=== PATIENT | male | born 1945 | race Caucasian/White ===

== ENCOUNTER 2019-08-08 07:31 | Outpatient (CLI) | payer MEDICARE, BC, SELFPAY ==
--- NOTE | ~2019-08-08 | XR_ITS ---
EXAMINATION: XR chest 2V DATE: 08/08/2019 08:09 INDICATION: Congestion, pulmonary tuberculosis TECHNIQUE: PA and lateral views of the chest are obtained. COMPARISON: None available FINDINGS: The lungs are free of acute opacities. There is no pleural effusion or pneumothorax. The he art size is upper limits of normal for technique. Median sternotomy wires and mediastinal surgical cl ips are seen, likely from prior coronary artery bypass grafting. There is moderate thoracic spondylos is. There are partially imaged changes of anterior fusion in the cervical spine. IMPRESSION: 1. No acute cardiopulmonary abnormality. Reviewed, dictated and finalized at location A. [employer]
== END 2019-08-08 07:32 | disposition home or self-care (01) ==
LOC: ANHIMG 07:52
PROVIDERS: PCP Internal Medicine; Visit Provider Physician Assistant
DX: Z11.1 Encounter for screening for respiratory tuberculosis (principal); R09.89 Other specified symptoms and signs involving the circulatory and respiratory systems
CPT/HCPCS: 71046

== ENCOUNTER → 2021-02-01 01:16 | Outpatient (CLI) | payer MEDICARE, BC, SELFPAY ==
[2021-02-02 19:27] LABS: SARS-CoV-2 RNA PCR Negative
== END ==
PROVIDERS: PCP Internal Medicine; Visit Provider Internal Medicine Gastroenterology
DX: Z01.812 Encounter for preprocedural laboratory examination (principal); Z20.822 Contact with and (suspected) exposure to COVID-19
CPT/HCPCS: C9803; U0003; U0005

== ENCOUNTER 2021-02-04 00:46 | Day surgery (SDC) | payer MEDICARE, BC, SELFPAY ==
[2021-01-24 09:33] VITALS: BMI 34.6
[2021-02-04 06:20] VITALS: BP 159/86; PULSE 64; RESP 18; TEMP 36.3; O2SAT 98
[2021-02-04] MEDS: LACTATED RINGERS 1,000 ML 150 ML IV CONT (06:34)
--- NOTE | 2021-02-04 07:05 | PM.HPGS ---
History of Present Illness History of Present Illness Consent: Risks, benefits, and alternatives have been discussed and questions answered. Patient agrees to proceed with procedure. Chief complaint: family hx of colon ca Narrative: Pancho Ham is a 75 year old male Referred for colon cancer screening. He did have a polyp removed many years ago. He takes Xarelto for deep vein thrombosis but stopped taking that 5 days ago. He has history of bladder cancer and had resection of that and part of his colon 8 years ago Review of Systems Review of Systems: All systems reviewed & are unremarkable except as noted in HPI and below PMFSH Social History Social History Smoking status: Never smoker Alcohol intake: former Substance use: never Substance use type: does not use Spiritual care concerns: No Meds Home Medications and Allergies Home Medications Medication Instructions Recorded Confirmed Type sod picosulf 10 mg-magnes 3.5 160 ml PO BID #160 ml 01/11/21 02/04/21 Rx gram-citric 12 gram/160 mL oral solution Lactobacillus acidophilus 100 mg PO DAILY 01/24/21 02/04/21 History aspirin [Adult Aspirin EC Low 81 mg PO DAILY 01/24/21 02/04/21 History Strength] cholecalciferol (vitamin D3) 50 mcg PO DAILY 01/24/21 02/04/21 History docusate sodium [Dulcolax Stool 100 mg PO QID 01/24/21 02/04/21 History Softener (dss)] folic acid 1 mg PO QMWF 01/24/21 02/04/21 History furosemide 40 mg PO DAILY 01/24/21 02/04/21 History gabapentin 300 mg PO QID 01/24/21 02/04/21 History latanoprost 1 drp EACH EYE DAILY 01/24/21 02/04/21 History metoprolol tartrate 25 mg PO BID 01/24/21 02/04/21 History oxybutynin chloride 10 mg PO DAILY 01/24/21 02/04/21 History potassium chloride 20 meq PO DAILY 01/24/21 02/04/21 History prednisone 10 mg PO DAILY 01/24/21 02/04/21 History ranolazine [Ranexa] 500 mg PO Q12H 01/24/21 02/04/21 History rivaroxaban [Xarelto] 20 mg PO DAILY 01/24/21 02/04/21 History rosuvastatin 20 mg PO DAILY 01/24/21 02/04/21 History timolol maleate 1 drp EACH EYE BID 01/24/21 02/04/21 History Allergies Allergy/AdvReac Type Severity Reaction Status Date / Time No Known Allergies Allergy Verified 02/04/21 06:19 Vital Signs Vital Signs - 24 hr 02/04/21 06:20 Temperature 36.3 C L Pulse Rate 64 Respiratory Rate 18 Blood Pressure 159/86 H Pulse Oximetry 98 Exam Resp: Auscultation: clear to auscultation bilaterally Cardio: Rate: regular rate Rhythm: regular rhythm GI: GI Palp: Yes Soft to palpation and No Tenderness to palpation present (GI) Assessment and Plan Assessment and plan (1) Colon cancer screening: Code(s): Z12.11 - Encounter for screening for malignant neoplasm of colon Status: Acute Assessment and Plan: Colonoscopy with possible biopsy or polypectomy or cautery or injection of substances.
--- NOTE | 2021-02-04 07:15 | WPDANESEPPF ---
Anes - Initial Pre Proc Eval Procedure: Operation Date: 02/04/21 07:30 Proposed Procedures p Screening Colonoscopy - Mak Roper MD Date/Time: 02/04/21 07:15 Surgeon: Mak Roper MD Pre Op Diagnosis: family hx of colon ca Patient Data Age: 75 Gender: M Height: 5 ft 9.5 in Weight: 108.2 kg Last Vital Signs Temp 97.4 F L 02/04/21 06:20 Pulse 64 02/04/21 06:20 Resp 18 02/04/21 06:20 BP 159/86 H 02/04/21 06:20 Pulse Ox 98 02/04/21 06:20 Allergies Allergy/AdvReac Type Severity Reaction Status Date / Time No Known Allergies Allergy Verified 02/04/21 06:19 Home Medications Medication Instructions Recorded Confirmed Type sod picosulf 10 mg-magnes 3.5 160 ml PO BID #160 ml 01/11/21 02/04/21 Rx gram-citric 12 gram/160 mL oral solution Lactobacillus acidophilus 100 mg PO DAILY 01/24/21 02/04/21 History aspirin [Adult Aspirin EC Low 81 mg PO DAILY 01/24/21 02/04/21 History Strength] cholecalciferol (vitamin D3) 50 mcg PO DAILY 01/24/21 02/04/21 History docusate sodium [Dulcolax Stool 100 mg PO QID 01/24/21 02/04/21 History Softener (dss)] folic acid 1 mg PO QMWF 01/24/21 02/04/21 History furosemide 40 mg PO DAILY 01/24/21 02/04/21 History gabapentin 300 mg PO QID 01/24/21 02/04/21 History latanoprost 1 drp EACH EYE DAILY 01/24/21 02/04/21 History metoprolol tartrate 25 mg PO BID 01/24/21 02/04/21 History oxybutynin chloride 10 mg PO DAILY 01/24/21 02/04/21 History potassium chloride 20 meq PO DAILY 01/24/21 02/04/21 History prednisone 10 mg PO DAILY 01/24/21 02/04/21 History ranolazine [Ranexa] 500 mg PO Q12H 01/24/21 02/04/21 History rivaroxaban [Xarelto] 20 mg PO DAILY 01/24/21 02/04/21 History rosuvastatin 20 mg PO DAILY 01/24/21 02/04/21 History timolol maleate 1 drp EACH EYE BID 01/24/21 02/04/21 History Patient hx anesthesia problems: none Family hx anesthesia problems: none PMFSH Past Medical History Medical History (Updated 02/04/21 @ 07:15 by Tunde Vaughn MD) Hyperlipidemia Hypertension Surgical History Surgical History (Updated 02/04/21 @ 07:15 by Tunde Vaughn MD) S/P CABG x 4 Social History Social History Smoking status: Never smoker Alcohol intake: former Substance use: never Substance use type: does not use Spiritual care concerns: No Anes - Eval Final PreProcedure Day of Procedure 02/04/21 07:15 Patient weight: obese Heart: regular rate and rhythm Lungs: clear to auscultation Airway: Mallampati scale class III Neurological: alert and oriented Last oral intake: >/= 8 hours ASA classification: III Emergent: no Anesthetic plan: proceed Anesthesia type and monitoring: general GIVS and standard monitoring Informed Consent: The patient's anesthetic plan and its attendant risks and benefits were discussed with the patient/family/POA. Questions were solicited and answers provided to the satisfaction of the patient/family/POA.
[2021-02-04 07:53] VITALS: BP 98/55; PULSE 66; RESP 19; O2SAT 98
--- NOTE | 2021-02-04 07:54 | SUR.OPER ---
resolution 360 clip, lot [id number], exp 08/09/23 applied to transverse polyp site resolution 360 clip, lot [id number], exp 10/24/2023 applied to transverse polyp site
[2021-02-04 08:03] VITALS: BP 123/67; PULSE 68; RESP 17; O2SAT 100
[2021-02-04 08:13] VITALS: BP 133/78; PULSE 59; RESP 19; O2SAT 99
== END 2021-02-04 08:23 | disposition home or self-care (01) ==
PROVIDERS: PCP Internal Medicine; Visit Provider Internal Medicine Gastroenterology
PROC: 0DJD8ZZ Inspection of Lower Intestinal Tract, Via Natural or Artificial Opening Endoscopic (ICD-10-PCS; CPT 45378; principal; 2021-02-04 07:30)
DX: Z12.11 Encounter for screening for malignant neoplasm of colon (principal); D12.3 Benign neoplasm of transverse colon; K57.30 Diverticulosis of large intestine without perforation or abscess without bleeding; K63.5 Polyp of colon; Z98.0 Intestinal bypass and anastomosis status; Z80.0 Family history of malignant neoplasm of digestive organs; Z79.82 Long term (current) use of aspirin; Z95.1 Presence of aortocoronary bypass graft; E78.5 Hyperlipidemia, unspecified; I10 Essential (primary) hypertension; E66.9 Obesity, unspecified; Z68.34 Body mass index [BMI] 34.0-34.9, adult
CPT/HCPCS: 45385; 45381; 88305; J2001; J2704; J7120

== ENCOUNTER 2024-05-09 09:40 | Inpatient (IN) | payer MEDICARE, BC, SELFPAY ==
[2024-05-09] VITALS (10 sets, daily range): BP systolic 103–146; BP diastolic 39–65; PULSE 61–84; RESP 12–20; TEMP 36.1–36.7; O2SAT 99–100; BMI 28.0
--- NOTE | ~2024-05-09 | CT_ITS ---
CT of the Abdomen and Pelvis: Indication: GI bleed Technique: 2.5 mm axial scans were obtained through the abdomen and pelvis following intravenous adm inistration of 100 cc of Omnipaque 350. Dose reduction technique was used on this scan by utilizing a utomated exposure control and iterative reconstruction technique. The dose-length product (DLP) was 6 36.85 mGy-cm. Findings: Scans through the lung bases are unremarkable. Multiple hepatic cysts are present. The spleen, pancreas, gallbladder, adrenals and kidneys are withi n normal limits. There are atherosclerotic calcifications of the aorta. No lymphadenopathy. No bowel obstruction or bowel wall thickening. There is colonic diverticulosis. There is a large infe rior abdominal ventral hernia containing multiple small bowel loops. Images through the pelvis were performed. Urinary bladder unremarkable. No pelvic mass seen. No ascit es. Impression: No definite active GI bleeding seen, but evaluation is limited due to retained oral contrast in the l arge bowel, especially distal large bowel. Large inferior ventral hernia containing multiple small bowel loops. Colonic diverticulosis. Reviewed, dictated and finalized at location . Impression: No definite active GI bleeding seen, but evaluation is limited due to retained oral contrast in the large bowel, especially distal large bowel. Large inferior ventral hernia containing multiple small bowel loops. Colonic diverticulosis.
--- NOTE | ~2024-05-09 | US_ITS ---
EXAMINATION: US venous doppler [facility] DATE: 05/09/2024 21:33 INDICATION: Lower limb edema. TECHNIQUE: Grayscale ultrasound images without and with compression and Doppler ultrasound images of the bilateral lower extremity veins were obtained. COMPARISON: None. FINDINGS: The visualized portions of right common femoral vein, profunda (deep) femoral vein, femoral vein, pop liteal vein, peroneal veins, posterior tibial veins, and greater saphenous vein outflow are patent. The visualized portions of left common femoral vein, profunda femoral vein, femoral vein, popliteal v ein, peroneal veins, posterior tibial veins, and greater saphenous vein outflow are patent. IMPRESSION: 1. No deep venous thrombosis. Reviewed, dictated and finalized at location A.
--- NOTE | ~2024-05-09 | XR_ITS ---
Portable chest x-ray Comparison: 08/08/2019 Clinical History: GI bleed Findings: Lungs are clear, without focal consolidation or pleural effusion. Cardiomediastinal silho uette is stable, status post median sternotomy. Bones and soft tissues are unremarkable. Impression: Clear lungs. Reviewed, dictated and finalized at location . Impression: Clear lungs.
--- NOTE | 2024-05-09 09:55 | ECG_ITS ---
Test Date: 2024-05-09 10:26:28 Measurements Intervals [place] Rate: 69 P: 35 [place]: 184 QRS: -1 QRSD: 94 T: 18 QT: 434 QTc: 465 Interpretive Statements SINUS RHYTHM No previous ECG available for comparison Electronically Signed On 05-10-2024 14:22:14 CDT by Vasu Lynn M.D.
--- NOTE | 2024-05-09 09:59 | ED.GIBLEED ---
HPI - GI Bleed General Chief complaint: GI Bleed <Simran Lakhani PA-C - Last Filed: 05/09/24 11:53> Stated complaint: DARK TARRY STOOL,LIGHTHEADED <Simran Lakhnai PA-C - Last Filed: 05/09/24 11:53> Time Seen by Provider: 05/09/24 09:41 <Simran Lakhani PA-C - Last Filed: 05/09/24 11:53> History of Present Illness HPI Narrative: 78-year-old male with a history of CABG, hyperlipidemia, hypertension, reported history of bladder cancer and colon cancer presents to the emergency department for dark tarry stools for approximately week and half with associated mid to lower abdominal discomfort. Patient states he saw his PCP who ordered a CT abdomen pelvis yesterday at [facility]. Patient states he was contacted by his PCP's office and was told there was a polyp that dislodged which may be the cause of his symptoms. States he was contacted by his PCP's office and advised to go to the ED today after he experienced episode of lightheadedness. States he went to bend over and car pick up driver his dog when his vision went blurry and dark and he felt like he was going to pass out. States he did not syncopize. He denies chest pain or shortness of breath, dysuria hematuria. States he had 3 episodes of melena today. Denies hematochezia, nausea vomiting, hemoptysis or coffee-ground emesis. Denies use of alcohol or drugs. He is on Eliquis for history of thrombosis but states he was advised by his PCP to discontinue this 3 days ago. patient reports a partial colon resection of bladder resection in 2011 for cancer. States he has not had any issues since and did not have to undergo chemo or radiation. His last colonoscopy was in [address] Roper which showed a colo-colonic anastomosis in the distal sigmoid, multiple diverticula, Three polyps which were removed which were hyperplastic polyps and tubular adenomas per pathology report. <Simran Lakhani PA-C - Last Filed: 05/09/24 11:53> Related Data Home medications: Home Medications Medication Instructions Recorded Confirmed cholecalciferol (vitamin D3) 50 50 mcg PO DAILY 01/24/21 05/09/24 mcg (2,000 unit) capsule docusate sodium 100 mg capsule 200 mg PO BID 01/24/21 05/09/24 (Dulcolax Stool Softener (docusate)) folic acid 1 mg tablet 1 mg PO QMWF 01/24/21 05/09/24 furosemide 40 mg tablet 40 mg PO DAILY 01/24/21 05/09/24 gabapentin 300 mg capsule 300 mg PO QID 01/24/21 05/09/24 metoprolol tartrate 50 mg tablet 25 mg PO BID 01/24/21 05/09/24 potassium chloride 20 mEq 20 meq PO DAILY 01/24/21 05/09/24 tablet,extended release prednisone 10 mg tablet 2 mg PO DAILY 01/24/21 05/09/24 rosuvastatin 20 mg tablet 20 mg PO DAILY 01/24/21 05/09/24 apixaban 5 mg tablet (Eliquis) 5 mg PO BID 05/09/24 05/09/24 leflunomide 20 mg tablet 20 mg PO DAILY 05/09/24 05/09/24 xvrvib-wseaawdb-qwrispx 1 cap PO TIDWM 05/09/24 05/09/24 3,000-9,500-15,000 unit capsule, delayed rel (Creon) mirabegron 50 mg tablet,extended 50 mg PO DAILY 05/09/24 05/09/24 release 24 hr omeprazole 40 mg capsule,delayed 40 mg PO BID 05/09/24 05/09/24 release <Simran Lakhani PA-C - Last Filed: 05/09/24 11:53> Allergies/Adverse reactions: Allergies Allergy/AdvReac Type Severity Reaction Status Date / Time No Known Allergies Allergy Verified 05/09/24 13:30 <Simran Lakhani PA-C - Last Filed: 05/09/24 11:53> Review of Systems Review of Systems: All systems reviewed & are unremarkable except as noted in HPI and below <Simran Lakhani PA-C - Last Filed: 05/09/24 11:53> [facility] Past Medical History Medical History: Medical History (Updated 05/09/24 @ 13:48 by Jackie Baker PA-C) Bladder cancer Status post be see EEG treatment in 2005 with recurrence in 2011 status post resection. Coronary artery disease Hyperlipidemia Hypertension Polymyalgia <Simran Lakhani PA-C - Last Filed: 05/09/24 11:53> Surgical History Surgical History: Surgica
[2024-05-09 10:10] LABS: Basophils Absolute Auto 0.1 K/mm3 (0.0-0.1); Hematocrit 26.7 % (42.0-52.0); Hemoglobin 8.5 g/dL (14.0-18.0); Immature Granulocyte Absolute 0.06 K/mm3 (0.00-0.031); Immature Granulocyte Percent A 0.8 % (0-0.5); Lymphocytes Absolute Auto 1.35 K/mm3 (0.9-3.2); Mean Corpuscular HGB Conc 31.8 g/dl (32-36); Mean Corpuscular Volume 94.3 fl (80-100); Mean Platelet Volume 11.3 fl (7.4-10.4); Monocytes Absolute Auto 0.7 K/mm3 (0.1-0.6); Monocytes Percent Auto 8.2 % (2.6-8.5); Neutrophils Absolute Auto 5.8 K/mm3 (1.3-6.7); Platelet Count Result 192 k/mm3 (150-375); Red Blood Count 2.83 M/mm3 (4.6-6.20); Red Cell Distribution Width 16.1 % (11.5-14.5)
[2024-05-09] MEDS: SODIUM CHLORIDE 0.9% IV 1,000 ML 999 ML IV CONT ×2 (10:12→12:06)
[2024-05-09 10:20] LABS: Partial Thromboplastin Time 27.6 Seconds (22.3-36.8); Prothrombin Time 14.2 Seconds (11.1-14.7)
[2024-05-09 10:23] LABS: Lactic Acid Reflex 1.5 mmol/L (0.7-2.0)
[2024-05-09 10:24] LABS: Alanine Aminotransferase 12 U/L (6-50); Albumin Level 3.4 g/dL (3.5-5.1); Alkaline Phosphatase 58 U/L (38-126); Anion Gap 5 mmol/L (4-12); Aspartate Amino Transferase 26 U/L (17-59); Bilirubin,Total 0.3 mg/dL (0.2-1.3); Blood Urea Nitrogen 22 mg/dL (9-20); Calcium 7.8 mg/dL (8.4-10.2); Carbon Dioxide 31 mmol/L (22-30); Chloride 100 mmol/L (98-107); Estimated CRCL calculation 74 ml/min; Estimated Glomerular Filt Rate > 60; Glucose 115 mg/dL (65-110); Lipase 66 U/L (23-300); Magnesium 1.9 mg/dL (1.6-2.3); Potassium 3.7 mmol/L (3.4-5.0); Sodium 136 mmol/L (137-145)
[2024-05-09 10:36] LABS: Troponin I < 0.012 ng/mL (0.000-0.034)
[2024-05-09] MEDS: PANTOPRAZOLE SODIUM IV 40 MG VIAL 80 MG IV PUSH (12:07)
--- NOTE | 2024-05-09 13:15 | ADMGEN ---
This patient, Pancho Ham, was admitted to 2 Medical Room 259-01. Patient/family oriented to hospital policies and general routines including ID bracelet, bed and alarms, visiting hours, pain management, procedures, bathroom and other care routines, personal items, smoking policy, room service/diet, and visiting hours. Information on how to activate the Rapid Response Team has been discussed. Patient/Family are encouraged to report perceived risks to care and to ask questions if they do not understand what they are told or what they should do.
--- NOTE | 2024-05-09 13:40 | PM.IMHP ---
H&P: HPI History of Present Illness Date/Time: 05/09/24 13:30 Chief Complaint: Dark stools. Narrative: This is a very pleasant 78-year-old male with history of deep venous thrombosis following bypass surgery, bladder cancer, colon polyps, coronary artery disease status post 4 vessel bypass, pancreatic insufficiency, polymyalgia rheumatica, hypertension, and hyperlipidemia who presented to the emergency department via private vehicle for evaluation of dark stools. The patient provides the following history. He has been passing dark stools for a week and a half and saw his doctor several days ago for evaluation. At that time he was instructed to stop taking his apixaban and plans were made for outpatient follow-up. Today he started to feel lightheaded, especially with bending over, and he was instructed to come to the ED. He denies syncope, chest pain, palpitations, epigastric and abdominal pain, bloating, belching, nausea, and vomiting. No history of peptic ulcers. He has not had any recent change in medications. In the ED: On arrival his pulse was 84 and blood pressure was 146/65. Labs were significant for a WBC count of 8.0, hemoglobin 8.5, platelet 192, INR 1.0, sodium 136, carbon dioxide 31, BUN 22, creatinine 0.80, lactic acid 1.5, total protein 6.0, and albumin 3.4. CT of the abdomen and pelvis was ordered and did not show any definite active GI bleeding however evaluation was limited due to retained oral contrast in the large bowel. He was given pantoprazole 80 mg IV and 2 L normal saline and he is being admitted in this setting for close monitoring and GI consultation. Review of Systems Review of Systems: 12 systems were reviewed and are negative except for as per HPI. [facility] Past Medical History Medical History (Updated 05/09/24 @ 18:15 by Jackie Baker PA-C) Bladder cancer Status post be see BCG treatment in 2005 with recurrence in 2012 status post resection. Coronary artery disease Hyperlipidemia Hypertension Pancreatic insufficiency Polymyalgia rheumatica Surgical History Surgical History (Updated 05/09/24 @ 18:10 by Jackie Baker PA-C) History of bladder surgery According to the patient he had a 3rd of his bladder removed and about 8 in of surrounding colon with negative margins. History of colonoscopy with polypectomy History of four vessel coronary artery bypass graft Family History Family History Sibling Lung cancer Social History Social History Social History: Surrogate medical decision maker: Lucía Ham, spouse. Code status: Full code. Smoking status: Never smoker Alcohol intake: never Substance use: never Substance use type: does not use Do You Feel Safe in your Home?: Yes Lack of Transportation: No Lack of Food: Never True Current Housing: I Have Housing Concerned About Future Housing: No Difficulty Paying Gas/Electric Bills: No Difficulty Paying for Meds: No Currently Unemployed: No Education: Master's Degree or Higher Difficulty w/ Childcare or Family Care: No Spiritual care concerns: No Meds Home Medications and Allergies Home Medications Medication Instructions Recorded Confirmed Type cholecalciferol (vitamin D3) 50 50 mcg PO DAILY 01/24/21 05/09/24 History mcg (2,000 unit) capsule docusate sodium 100 mg capsule 200 mg PO BID 01/24/21 05/09/24 History (Dulcolax Stool Softener (docusate)) folic acid 1 mg tablet 1 mg PO QMWF 01/24/21 05/09/24 History furosemide 40 mg tablet 40 mg PO DAILY 01/24/21 05/09/24 History gabapentin 300 mg capsule 300 mg PO QID 01/24/21 05/09/24 History metoprolol tartrate 50 mg tablet 25 mg PO BID 01/24/21 05/09/24 History potassium chloride 20 mEq 20 meq PO DAILY 01/24/21 05/09/24 History tablet,extended release prednisone 10 mg tablet 2 mg PO DAILY 01/24/21 05/09/24 History rosuvas
[2024-05-09 14:25] LABS: Hematocrit 22.6 % (42.0-52.0); Hemoglobin 7.1 g/dL (14.0-18.0)
[2024-05-09 16:46] LABS: Hematocrit 22.3 % (42.0-52.0); Hemoglobin 7.1 g/dL (14.0-18.0)
[2024-05-09] MEDS: GABAPENTIN 300 MG CAPSULE PO ×2 (17:21→20:27)
--- NOTE | 2024-05-09 18:21 | WPDGICN ---
Assessment and Plan Assessment and plan (1) Melena: Code(s): K92.1 - Melena Status: Acute Assessment and Plan: eliquis on hold never had egd wonder if avm, pud, etc egd tomorrow transfuse if hgb<7 iv protonix (2) Acute blood loss anemia: Code(s): D62 - Acute posthemorrhagic anemia Status: Acute Assessment and Plan: monitor for more signs of bleeding (3) GI bleed: Qualifiers: GI bleed type/associated pathology: melena Qualified Code(s): K92.1 - Melena Code(s): K92.2 - Gastrointestinal hemorrhage, unspecified Status: Acute Assessment and Plan: egd tomorrow (4) Polymyalgia rheumatica: Code(s): M35.3 - Polymyalgia rheumatica Status: Acute (5) Pancreatic insufficiency: Code(s): K86.89 - Other specified diseases of pancreas Status: Acute Assessment and Plan: on creon, diarrhea has improved (6) Weight loss: Code(s): R63.4 - Abnormal weight loss Status: Acute Assessment and Plan: noted after weaned off steroids GI Consult Note Consult date/time: 05/09/24 18:21 Reason for consult: melena, acute anemia HPI: Pancho Ham is a 78 year old male with history of deep venous thrombosis following bypass surgery on eliquis, bladder cancer s/p surgery now with ventral hernia, colon polyps (had colonoscopies but never EGD), coronary artery disease status post 4 vessel bypass, pancreatic insufficiency on creon, polymyalgia rheumatica- used to be on steroids but recently weaned off then lost significant amount of weight, hypertension, and hyperlipidemia who came to the emergency department via private vehicle for evaluation of dark stools. He noted tarry stools about 1.5 week ago, his PCP about 3 days ago told him to stop using eliquis and started on PPI but today he started to feel lightheaded, especially with bending over. ER labs were significant for a WBC count of 8.0, hemoglobin 8.5, platelet 192, INR 1.0, sodium 136, carbon dioxide 31, BUN 22, creatinine 0.80, lactic acid 1.5, total protein 6.0, and albumin 3.4. CT of the abdomen and pelvis no acute findings. Review of Systems Constitutional: Constitutional: Reports weakness Eyes: Eyes: Denies blurry vision ENT: Reports Normal hearing present, Denies headache(s) and Denies neck pain Cardiovascular: Cardiovascular: Denies chest pain and Denies dyspnea Respiratory: Respiratory: Denies dyspnea Gastrointestinal: Gastrointestinal: Reports no additional gastrointestinal complaints Genitourinary: Genitourinary: Denies dysuria Musculoskeletal: Musculoskeletal: Denies neck pain Integumentary/Breasts: Skin/Breast: Denies dry skin Neurologic: Reports Normal hearing present, Denies headache(s) and Denies weakness Psychiatric: Psychiatric: Denies anxiety Endocrine: Endocrine: Denies change in body appearance Hematologic/Lymphatic: Hematologic/Lymphatic: Denies easy bleeding Allergic/Immunologic: Allergic/Immunologic: Denies urticaria PMFSH Past Medical History Medical History (Updated 05/09/24 @ 18:24 by Seng Su MD) Bladder cancer Status post be see BCG treatment in 2005 with recurrence in 2012 status post resection. Coronary artery disease Hyperlipidemia Hypertension Melena Pancreatic insufficiency Polymyalgia rheumatica Weight loss Surgical History Surgical History (Updated 05/09/24 @ 18:10 by Jackie Baker PA-C) History of bladder surgery According to the patient he had a 3rd of his bladder removed and about 8 in of surrounding colon with negative margins. History of colonoscopy with polypectomy History of four vessel coronary artery bypass graft Family History Family History Sibling Lung cancer Social History Social History Social History: Surrogate medical decision maker: Lucía Casiano
[2024-05-09] MEDS: METOPROLOL TARTRATE 25 MG TABLET PO (20:27)
[2024-05-09] MEDS: PANTOPRAZOLE SODIUM IV 40 MG VIAL IV PUSH (20:32)
[2024-05-09 22:39] LABS: Hemoglobin 7.3 g/dL (14.0-18.0)
[2024-05-10] VITALS (15 sets, daily range): BP systolic 95–148; BP diastolic 37–62; PULSE 56–75; RESP 14–20; TEMP 36.2–36.5; O2SAT 98–100
[2024-05-10 06:23] LABS: Hematocrit 26.4 % (42.0-52.0); Mean Corpuscular HGB Conc 30.3 g/dl (32-36); Mean Corpuscular Hemoglobin 29.2 pg (26-34); Mean Corpuscular Volume 96.4 fl (80-100); Mean Platelet Volume 11.6 fl (7.4-10.4); Platelet Count Result 184 k/mm3 (150-375); Red Blood Count 2.74 M/mm3 (4.6-6.20); Red Cell Distribution Width 16.8 % (11.5-14.5); White Blood Count 5.2 K/mm3 (4.5-10.0)
[2024-05-10 06:43] LABS: Anion Gap 4 mmol/L (4-12); Blood Urea Nitrogen 13 mg/dL (9-20); Calcium 7.8 mg/dL (8.4-10.2); Carbon Dioxide 28 mmol/L (22-30); Chloride 105 mmol/L (98-107); Estimated CRCL calculation 67 ml/min; Estimated Glomerular Filt Rate > 60; Glucose 93 mg/dL (65-110); Magnesium 2.1 mg/dL (1.6-2.3); Potassium 3.9 mmol/L (3.4-5.0); Sodium 137 mmol/L (137-145)
[2024-05-10] MEDS: LACTATED RINGERS 1,000 ML 150 ML IV CONT (07:05)
--- NOTE | 2024-05-10 07:23 | WPDANESEPP ---
Anes - Eval Pre Procedure Procedure: Operation Date: 05/10/24 07:30 Proposed Procedures p Esophagogastroduodenoscopy - Seng Su MD Date/Time: 05/10/24 07:23 Surgeon: Daniel Preop Diagnosis: GI bleed Pre Op Diagnosis: GI Bleed Patient Data Age: 78 Gender: M Height: 1.75 m Weight: 90.1 kg Last Vital Signs Temp 97.3 F L 05/10/24 07:04 Pulse 65 05/10/24 07:04 Resp 18 05/10/24 07:04 BP 117/40 L 05/10/24 07:04 Pulse Ox 100 05/10/24 07:04 O2 Del Method Room Air 05/10/24 07:04 Allergies Allergy/AdvReac Type Severity Reaction Status Date / Time No Known Allergies Allergy Verified 05/09/24 13:30 Home Medications Medication Instructions Recorded Confirmed Type cholecalciferol (vitamin D3) 50 50 mcg PO DAILY 01/24/21 05/09/24 History mcg (2,000 unit) capsule docusate sodium 100 mg capsule 200 mg PO BID 01/24/21 05/09/24 History (Dulcolax Stool Softener (docusate)) folic acid 1 mg tablet 1 mg PO QMWF 01/24/21 05/09/24 History furosemide 40 mg tablet 40 mg PO DAILY 01/24/21 05/09/24 History gabapentin 300 mg capsule 300 mg PO QID 01/24/21 05/09/24 History metoprolol tartrate 50 mg tablet 25 mg PO BID 01/24/21 05/09/24 History potassium chloride 20 mEq 20 meq PO DAILY 01/24/21 05/09/24 History tablet,extended release prednisone 10 mg tablet 2 mg PO DAILY 01/24/21 05/09/24 History rosuvastatin 20 mg tablet 20 mg PO DAILY 01/24/21 05/09/24 History apixaban 5 mg tablet (Eliquis) 5 mg PO BID 05/09/24 05/09/24 History leflunomide 20 mg tablet 20 mg PO DAILY 05/09/24 05/09/24 History ozpbaf-[id number]-wcsxzgs 1 cap PO TIDWM 05/09/24 05/09/24 History 36,000-114,000-180,000 unit capsule,delay rel (Creon) mirabegron 50 mg tablet,extended 50 mg PO DAILY 05/09/24 05/09/24 History release 24 hr omeprazole 40 mg capsule,delayed 40 mg PO BID 05/09/24 05/09/24 History release Laboratory Tests 05/09/24 05/09/24 05/09/24 10:00 10:00 10:00 WBC 8.0 K/mm3 (4.5-10.0) RBC 2.83 L M/mm3 (4.6-6.20) Hgb 8.5 L g/dL (14.0-18.0) Hct 26.7 L % (42.0-52.0) MCV 94.3 fl (80-100) MCH 30.0 pg (26-34) MCHC 31.8 L g/dl (32-36) RDW 16.1 H % (11.5-14.5) Plt Count 192 k/mm3 (150-375) MPV 11.3 H fl (7.4-10.4) Immature Gran % (Auto) 0.8 H % (0-0.5) Neut % (Auto) 73.0 % (45.5-73.1) Lymph % (Auto) 17.0 L % (18.3-44.2) [place] % (Auto) 8.2 % (2.6-8.5) Eos % (Auto) 0.0 % (0-4.4) Baso % (Auto) 1.0 % (0.2-1.2) Lymph # (Auto) 1.35 K/mm3 (0.9-3.2) [place] # (Auto) 0.7 H K/mm3 (0.1-0.6) Eos # (Auto) 0.0 K/mm3 (0-0.3) Baso # (Auto) 0.1 K/mm3 (0.0-0.1) Abs Immat Gran (auto) 0.06 H K/mm3 (0.00-0.031) Absolute Neuts (auto) 5.8 K/mm3 (1.3-6.7) Absolute Nucleated RBC 0.000 K/mm3 (0.0-0.012) Nucleated RBC % 0.0 % (0.0-0.2) PT 14.2 Seconds (11.1-14.7) INR 1.0 APTT 27.6 Seconds (22.3-36.8) Sodium 136 L mmol/L Cancelled (137-145) Potassium 3.7 mmol/L Cancelled (3.4-5.0) Chloride 100 mmol/L (98-107) Carbon Dioxide Anion Gap BUN Creatinine Estim Creat Clear Calc Estimated GFR Glucose Lactic Acid Calcium Magnesium Total Bilirubin AST ALT Alkaline Phosphatase Troponin I Total Protein Albumin Lipase Blood Type Antibody Screen 05/09/24 05/09/24 05/09/24 10:00 10:00 10:00 WBC RBC Hgb Hct MCV MCH MCHC RDW
[2024-05-10] MEDS: BENZOCAINE (*SP) 60 ML SPRAY CAN (HURRICAINE) 1 SPRAY MUCOUS MEM (07:44)
[2024-05-10] MEDS: LEFLUNOMIDE 20 MG TABLET PO (09:53)
[2024-05-10] MEDS: METOPROLOL TARTRATE 25 MG TABLET PO ×2 (09:54→20:23)
[2024-05-10] MEDS: LIPASE/AMYLASE/PROTEASE 12,000 UNITS CAP 3 CAP PO ×2 (09:54→17:02)
[2024-05-10] MEDS: GABAPENTIN 300 MG CAPSULE PO ×3 (09:54→20:26)
[2024-05-10] MEDS: predniSONE 1 MG TABLET 2 MG PO (09:54)
[2024-05-10] MEDS: MIRABEGRON 50 MG ER TABLET PO (09:55)
[2024-05-10] MEDS: PANTOPRAZOLE SODIUM IV 40 MG VIAL IV PUSH ×2 (09:57→20:23)
[2024-05-10 13:01] LABS: Hematocrit 23.5 % (42.0-52.0); Hemoglobin 7.3 g/dL (14.0-18.0)
--- NOTE | 2024-05-10 14:38 | PM.IMPN ---
Progress Note: A&P Assessment and Plan (1) GI bleed: Qualifiers: GI bleed type/associated pathology: melena Qualified Code(s): K92.1 - Melena Code(s): K92.2 - Gastrointestinal hemorrhage, unspecified Status: Acute Assessment and Plan: - s/p EGD with APC cauterization of dieulafoy lesion. - Continue to trend H/H. - Continue protonix BID for now. - Appreciate GI assistance. - Further mgt pending H/H results. - Hold BP meds for now. (2) Acute blood loss anemia: Code(s): D62 - Acute posthemorrhagic anemia Status: Acute Assessment and Plan: - Caused by # 1 above. - Treated per GI. - Mgt as above. (3) Lower extremity edema: Code(s): R60.0 - Localized edema Status: Acute Assessment and Plan: - Patient reports chronic. - Venous duplex negative. - No further work-up needed. - Elevate LE when possible. (4) Hypertension: Code(s): I10 - Essential (primary) hypertension Status: Acute Assessment and Plan: - BP currently well controlled. - Monitor for now with recent GI bleed. - Monitor closely. (5) Polymyalgia rheumatica: Code(s): M35.3 - Polymyalgia rheumatica Status: Acute Assessment and Plan: - Continue Arava, Gabapentin, PO steroids. Plan Continue to trend H/H. Time Spent With Patient Time with patient: 25 - 35 minutes Subjective Date/time seen: 05/10/24 14:38 Interval history: This is a very pleasant 78-year-old male with history of deep venous thrombosis following bypass surgery, bladder cancer, colon polyps, coronary artery disease status post 4 vessel bypass, pancreatic insufficiency, polymyalgia rheumatica, hypertension, and hyperlipidemia who presented to the emergency department with reports of passing dark stools for a week and a half. Patient saw his PCP several days ago and he was instructed to stop taking his apixaban. Patient started feeling lightheaded, especially with bending over, and he was instructed to come to the ED. Patient was seen by GI prior to my exam and underwent an EGD that noted a dieulafoy lesion that was actively bleeding. This was the cause of his gastric bleeding per GI and it was successfully cauterized with APC. Review of Systems Review of Systems: All systems reviewed & are unremarkable except as noted in HPI and below Exam Narrative: General: Well appearing, no acute distress. HEENT: Atraumatic, PERRL, EOMI, no icteria Neck: Supple Pulmonary: Lungs clear bilaterally. Cardiovascular: RRR, no murmurs GI: Soft, non-tender, obese, +ve bowel sounds X4 quadrants. Skin: Warm and dry, no lesions noted. Extremities: 1+ edema jorge alberto. LE Neuro: Well oriented, CN II-XII Grossly intact. No focal neuro deficits noted. Psych: Calm and co-operative. Objective Data Vital Signs Vital Signs: Vital Signs - 24 hr 05/09/24 15:49 05/09/24 18:50 05/09/24 20:27 Temperature 97.7 F 97.9 F Pulse Rate 70 63 79 Respiratory Rate 16 16 Blood Pressure 121/44 L 115/44 L Pulse Oximetry 99 100 Oxygen Delivery 05/09/24 20:00 05/09/24 20:00 05/09/24 20:00 Temperature 96.9 F L 96.9 F L Pulse Rate 79 Respiratory Rate 20 Blood Pressure 134/47 L Pulse Oximetry 100 Oxygen Delivery Room Air 05/10/24 00:00 05/10/24 01:00 05/10/24 01:05 Temperature 97.1 F L Pulse Rate 74 Respiratory Rate 20 Blood Pressure 110/50 L 110/50 L 109/44 L Pulse Oximetry 100 Oxygen Delivery 05/10/24 01:10 05/09/24 20:00 05/10/24 00:00 Temperature Pulse Rate 72 67 Respiratory Rate Blood Pressure 114/44 L Pulse Oximetry Oxygen Delivery 05/10/24 04:00 05/10/24 04:00 05/10/24 07:04 Temperature 97.4 F L 97.3 F L Pulse Rate 70 64 65 Respiratory Rate 20 18 Blood Pressure 121/48 L 117/40 L Pulse Oximetry 100 100 Oxygen Delivery Room Air 05/10/24 08:00 05/10/24 08:10 05/10/24 08:20 Temperature Pulse Rate 71 67 62 Respiratory Rate 16 16 18
--- NOTE | 2024-05-10 18:16 | ECHO_ITS ---
Patient Info Name: Pancho Ham Age: 78 years : 1945 Gender: Male Ht: 69 in Wt: 184 lbs BSA: 2.03 m2 HR: 64 bpm BP: 121 / 48 mmHg Heart Rhythm: Sinus Rhythm Technical Quality: Good Exam Date: 05/10/2024 10:41 AM Exam Location: Echo Lab Patient Status: Outpatient Admit Date: 05/09/2024 Staff Ordering Physician: Jackie Baker PA-C Associate Professor Of English: Gina Feliz RDCS Attending Provider: David Guzmán MD Referring Physician: Samuel NORTH; Exam Type: CA echo doppler color flow Study Info Indications - coronary artery disease, HTN, EDEMA Complete two-dimensional, color flow and Doppler transthoracic echocardiogram is performed. Summary 1. Complete two-dimensional, color flow and Doppler transthoracic echocardiogram is performed. 2. There is no tricuspid valve regurgitation. 3. Left ventricular chamber dimension is normal. 4. Left ventricular systolic function is normal, estimated at 65-70%. 5. Right ventricular chamber dimension is normal. 6. Right ventricular systolic function is normal. 7. 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 Left Ventricle Left ventricular chamber dimension is normal. Left ventricular systolic function is normal, estimated at 65-70%. There is mildly increased left ventricular wall thickness. Left ventricular septal wall motion is normal. The left ventricular diastolic function is grade I diastolic dysfunction. Right Ventricle Right ventricular chamber dimension is normal. Right ventricular systolic function is normal. Left Atria Left atrial chamber dimension is mildly enlarged. Right Atria Right atrial chamber dimension is normal. Aortic Valve There is no aortic valve sclerosis. There is no aortic valve stenosis. The bioprosthetic aortic valve is structurally and functionally normal by two-dimensional, color flow Doppler and Doppler interrogation. 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 Pulmonic Valve The pulmonic valve is not well visualized. Mitral Valve The mitral valve has normal leaflets. There is no mitral valve stenosis. There is no mitral valve regurgitation. Tricuspid Valve There is no significant tricuspid valve stenosis. There is no tricuspid valve regurgitation. Pericardium/Pleural The pericardium appears normal. There is no pericardial effusion. Inferior Vena Cava Normal inferior vena cava with >50% collapse upon inspiration consistent with normal right atrial pressure, 10 mmHg. Aorta The aortic root size at the sinus of Valsalva is normal. The prox ascending aorta size is normal. Left Ventricular Outflow Tract Name Value Normal LVOT 2D LVOT Diameter 1.9 cm LVOT Doppler LVOT Peak Gradient 7 mmHg LVOT Mean Gradient 5 mmHg LVOT VTI 37 cm LVOT VTI/AV VTI Ratio 0.5 LVOT Stroke Volume 104 ml LVOT CO 6.2 l/min LVOT CI 3.1 l/min/m2 Pulmonic Valve Name
[2024-05-10 19:07] LABS: Hematocrit 23.8 % (42.0-52.0); Hemoglobin 7.4 g/dL (14.0-18.0)
[2024-05-11] VITALS: BP 121/44; PULSE 68; PULSE 80; RESP 16; TEMP 36.4; O2SAT 100
[2024-05-11 00:26] LABS: Hematocrit 24.1 % (42.0-52.0); Hemoglobin 7.5 g/dL (14.0-18.0)
[2024-05-11 04:00] VITALS: BP 128/40; PULSE 59; PULSE 66; RESP 16; TEMP 36.3; O2SAT 100
[2024-05-11] MEDS: ACETAMINOPHEN 325 MG TABLET 650 MG PO (04:56)
[2024-05-11 06:36] LABS: Hematocrit 24.4 % (42.0-52.0); Hemoglobin 7.4 g/dL (14.0-18.0)
[2024-05-11 08:00] VITALS: BP 127/42; PULSE 63; PULSE 64; RESP 12; TEMP 36.3; O2SAT 100
[2024-05-11 08:19] VITALS: BP 127/59; BP 137/49; PULSE 72; PULSE 74
[2024-05-11 08:39] LABS: Iron 28 ug/dL (49-181)
[2024-05-11 08:48] LABS: Percent Iron Saturation 11 % (20-50)
[2024-05-11] MEDS: GABAPENTIN 300 MG CAPSULE PO ×2 (09:09→13:54)
[2024-05-11] MEDS: LEFLUNOMIDE 20 MG TABLET PO (09:09)
[2024-05-11] MEDS: DOCUSATE SODIUM 100 MG CAPSULE 200 MG PO (09:10)
[2024-05-11] MEDS: predniSONE 1 MG TABLET 2 MG PO (09:10)
[2024-05-11] MEDS: MIRABEGRON 50 MG ER TABLET PO (09:10)
[2024-05-11 09:11] VITALS: PULSE 75
[2024-05-11] MEDS: METOPROLOL TARTRATE 25 MG TABLET PO (09:11)
[2024-05-11] MEDS: PANTOPRAZOLE SODIUM IV 40 MG VIAL IV PUSH (09:11)
[2024-05-11] MEDS: LIPASE/AMYLASE/PROTEASE 12,000 UNITS CAP 3 CAP PO ×2 (09:11→13:53)
--- NOTE | 2024-05-11 09:41 | WPDGIPROGNO ---
Progress Note: A&P Assessment and Plan (1) Dieulafoy lesion of stomach: Code(s): K31.82 - Dieulafoy lesion (hemorrhagic) of stomach and duodenum Status: Acute Assessment and Plan: this was cause of bleeding, treated with apc he can go home with ppi daily, hold eliquis at least for 1 week (2) Acute blood loss anemia: Code(s): D62 - Acute posthemorrhagic anemia Status: Acute Assessment and Plan: probably will need iron supplement repeat h/h as outpatient (3) GI bleed: Qualifiers: GI bleed type/associated pathology: melena Qualified Code(s): K92.1 - Melena Code(s): K92.2 - Gastrointestinal hemorrhage, unspecified Status: Acute Assessment and Plan: resolved (4) Melena: Code(s): K92.1 - Melena Status: Acute Subjective Date/time seen: 05/11/24 09:41 Interval history: egd yesterday found dieulafoy lesion that was bleeding, treated with apc doing ok, no more signs of bleeding Review of Systems Review of Systems: All systems reviewed & are unremarkable except as noted in HPI and below Exam Const: General: comfortable and no acute distress HENMT: Face/Nose/Sinus: Normal nares present Eyes: General: appearance normal, both eyes and all related structures Neck: Neck: no JVD Resp: Auscultation: clear to auscultation bilaterally Cardio: Rate: regular rate Rhythm: regular rhythm GI: Inspection: non-distended GI Palp: Yes Soft to palpation and No Tenderness to palpation present (GI) Auscultation: normal bowel sounds Skin: General skin exam: normal color Neuro: Speech: normal speech Motor exam (neuro): 5/5 motor strength present throughout Extrem: General: normal to inspection Psych: Mental Status: mental status grossly normal Objective Data Vital Signs Vital Signs: Vital Signs - 24 hr 05/10/24 09:54 05/10/24 12:00 05/10/24 12:00 Temperature 97.6 F Pulse Rate 62 63 75 Respiratory Rate 18 Blood Pressure 116/51 L Pulse Oximetry 100 Oxygen Delivery 05/10/24 16:00 05/10/24 16:00 05/10/24 20:23 Temperature 97.1 F L Pulse Rate 63 62 71 Respiratory Rate 14 Blood Pressure 122/46 L Pulse Oximetry 100 Oxygen Delivery 05/10/24 20:00 05/10/24 20:00 05/10/24 22:50 Temperature 97.7 F Pulse Rate 71 Respiratory Rate 16 Blood Pressure 132/53 L 139/48 L 148/49 H Pulse Oximetry 100 Oxygen Delivery 05/11/24 00:00 05/10/24 20:00 05/11/24 04:00 Temperature 97.5 F L 97.3 F L Pulse Rate 68 72 66 Respiratory Rate 16 17 16 Blood Pressure 121/44 L 128/40 L Pulse Oximetry 100 99 100 Oxygen Delivery Room Air 05/10/24 20:00 05/11/24 00:00 05/11/24 04:00 Temperature Pulse Rate 56 L 80 59 L Respiratory Rate Blood Pressure Pulse Oximetry Oxygen Delivery 05/11/24 08:00 05/11/24 08:00 05/11/24 08:19 Temperature 97.3 F L Pulse Rate 64 64 74 Respiratory Rate 12 Blood Pressure 127/42 L 127/42 L 127/59 L Pulse Oximetry 100 Oxygen Delivery 05/11/24 08:19 05/11/24 09:11 Temperature Pulse Rate 72 75 Respiratory Rate Blood Pressure 137/49 L Pulse Oximetry Oxygen Delivery Intake/Output Intake/Output: Intake & Output 05/08/24 05/09/24 05/10/24 05/11/24 23:59 23:59 23:59 23:59 Intake Total 1150 1145 555 Output Total 400 Balance 750 1145 555 Meds/Results Medications: Active Medications Generic Name Dose Route Start Last Admin Trade Name Freq PRN Reason Stop Dose Admin Acetaminophen 650 mg 05/09/24 11:51 05/11/24 04:56 Acetaminophen 325 Mg Tablet PO 650 mg Q4H PRN Administration Mild Pain (1-3) or Fever Lipase/Protease/Amylase 3 cap 05/09/24 17:00 05/10/24 17:02 Lipase/Amylase/Protease 12,000 Units Cap PO 3 cap TIDWM FLIP Administration Docusate Sodium 200 mg 05/09/24 17:00 05/11/24 09:10 Docusate Sodium 100 Mg Capsule PO 200 mg BID FLIP Administration Gabapentin 300
[2024-05-11 12:00] VITALS: BP 110/58; PULSE 63; PULSE 68; RESP 18; TEMP 36.4; O2SAT 100
--- NOTE | 2024-05-11 13:28 | PM.DS ---
DS: Admitting Diagnosis Discharge Date 05/11/2024 Admitting Diagnosis Dark Stools DS: Discharge Diagnosis Discharge Diagnosis (1) GI bleed: Qualifiers: GI bleed type/associated pathology: melena Qualified Code(s): K92.1 - Melena Code(s): K92.2 - Gastrointestinal hemorrhage, unspecified Status: Acute Assessment and Plan: - s/p EGD with APC cauterization of dieulafoy lesion. - Hemoglobin currently stable. - Will be discharged on protonix. (2) Acute blood loss anemia: Code(s): D62 - Acute posthemorrhagic anemia Status: Acute Assessment and Plan: - Caused by # 1 above. - Treated per GI. - Managed as above. (3) Lower extremity edema: Code(s): R60.0 - Localized edema Status: Acute Assessment and Plan: - Chronic per patient. - Venous duplex negative. (4) Hypertension: Code(s): I10 - Essential (primary) hypertension Status: Acute Assessment and Plan: - BP currently well controlled inpatient. (5) Polymyalgia rheumatica: Code(s): M35.3 - Polymyalgia rheumatica Status: Acute Assessment and Plan: - Continued on Arava, Gabapentin, and PO steroids. Plan Discharge home. DS: Summary Hospital Course Reason for hospitalization: GI Bleed. Hospital Course: Patient presented to the ER with reports of dark stools at home. Patient saw his PCP several days ago and he was instructed to stop taking his apixaban. Patient started feeling lightheaded, especially with bending over, so he was instructed to come to the ED for evaluation. Patient was noted with a Hgb of 8.1, that dropped to 7.1 four hours later. Patient was referred to the commis chef, who performed an upper endoscopy and noted a dieulafoy lesion on stomach (hemorrhagic) and performed an APC cauterization. Patient's hemoglobin has been stable since the procedure and he's tolerating regular meals well, has no dizziness or other symptomatic anemia signs or symptoms. Patient is medically stable for discharge with no acute distress noted or reported prior to the discharge. Patient has been advised to stop anticoagulation for at least a week but it appears his PCP has already discontinued the medication. Time Spent with Patient Time attestation: Total time spent providing and/or coordinating discharge services: Time spent: Less than 30 minutes Exam Narrative: General: Well appearing, no acute distress. HEENT: Atraumatic, PERRL, EOMI, no icteria Neck: Supple Pulmonary: Lungs clear bilaterally. Cardiovascular: RRR, no murmurs GI: Soft, non-tender, obese, +ve bowel sounds X4 quadrants. Skin: Warm and dry, no lesions noted. Extremities: 1+ edema jorge alberto. LE Neuro: Well oriented, CN II-XII Grossly intact. No focal neuro deficits noted. Psych: Calm and co-operative. DS: Data Data Completed and Pending Labs on day of discharge: Labs from last 24 hours 05/11/24 05/11/24 05/10/24 06:03 00:19 19:03 Hgb 7.4 L 7.5 L 7.4 L Hct 24.4 L 24.1 L 23.8 L Iron 28 L TIBC 264 L % Saturation 11 L Discharge Plan Discharge Attending physician on discharge: Santiago Quinn Consulting providers: Seng Su Discharging Clinician: Robert Bernard Anticipated Discharge Date/Time: 05/11/24 13:14 Patient Disposition: Home, Self-Care Activity: as tolerated Diet: heart healthy Patient Instructions: Antibiotic Form, Apixaban (By mouth), Pain Management (DC), Blood Thinners (DC) Stand Alone Forms: General Discharge Information Follow-up/Referrals: Reymundo,Sang Bryant MD [Primary Care Provider] - 1 Week Discharge Medications: [place] 12,000-38,000 -60,000 unit Capsule,Delayed Release(Dr/Ec) 3 cap PO TIDWM Qty: 30 0RF pantoprazole [Protonix] 40 mg tablet,delayed release (DR/EC) 40 mg PO QAM 28 Days Qty: 28 0RF Continued furosemide 40 mg tablet 40 mg PO DAILY prednisone 10 mg tablet
== END 2024-05-11 14:30 | disposition home or self-care (01) | DRG 378 ==
LOC: ANHED 11:47 → ANH2MED 12:57
PROVIDERS: Internal Medicine Gastroenterology; Physician Assistant; Admitting Provider General Practice; Emergency Provider Physician Assistant; PCP Internal Medicine; Visit Provider Nurse Practitioner Adult Health
PROC: 0DJ08ZZ Inspection of Upper Intestinal Tract, Via Natural or Artificial Opening Endoscopic (ICD-10-PCS; CPT 43235; principal; 2024-05-10 07:30)
DX: K31.82 Dieulafoy lesion (hemorrhagic) of stomach and duodenum (principal); D62 Acute posthemorrhagic anemia; R60.0 Localized edema; M35.3 Polymyalgia rheumatica; I10 Essential (primary) hypertension; E78.5 Hyperlipidemia, unspecified; I25.10 Atherosclerotic heart disease of native coronary artery without angina pectoris; R63.4 Abnormal weight loss; K43.9 Ventral hernia without obstruction or gangrene; K86.89 Other specified diseases of pancreas; Z85.51 Personal history of malignant neoplasm of bladder; Z95.1 Presence of aortocoronary bypass graft; Z86.718 Personal history of other venous thrombosis and embolism; Z95.2 Presence of prosthetic heart valve
CPT/HCPCS: 36415; 71045; 74177; 80048; 80053; 83540; 83550; 83605; 83690; 83735; 84484; 85014; 85018; 85025; 85027; 85610; 85730; 86850; 86900; 86901; 93005; 93306; 93970; 96361; 96374; 99285; A9270; G0378; J2470; J2704; J7030; J7120; Q9967